=== PATIENT | female | born 1955 | race Caucasian/White ===

== ENCOUNTER 2017-10-11 08:50 | Inpatient (IN) | payer BC ==
[2017-10-11] MEDS ORDERED: Lidocaine 2.5%/Prilocain 2.5%* 5 GM TUBE ONE (08:57)
[2017-10-11] MEDS ORDERED: Buffered Lidocaine 0.9% SYRIN* 5 ML/SYR SYRINGE ONE (08:57)
[2017-10-11] MEDS ORDERED: Ondansetron INJ* 2 MG/ML VIAL ONE (12:31)
[2017-10-11] MEDS ORDERED: Dexamethasone IV* 4 MG/ML 1 ML (4 MG) ONE (12:32)
[2017-10-11] MEDS ORDERED: Heparin VIAL(*) 5000 UNITS/ML VIAL (FIVE THOUSAND) ONE (12:32)
[2017-10-11] MEDS ORDERED: Scopolamine 1.5 mg* PATCH ONE (12:32)
[2017-10-11] MEDS ORDERED: Famotidine IV* 10 MG/ML 2 ML (20 mg) ONE (12:32)
[2017-10-11] MEDS ORDERED: ceFAZolin 2 GM PREMIX (*) 2 GM/50 ML BAG IVPB ONE ×2 (12:32→17:12)
[2017-10-11] MEDS ORDERED: Methylene Blue 0.5 %* 50 MG/10 ML AMP IV ONE ×2 (12:33→12:51)
[2017-10-11] MEDS ORDERED: Gentamicin ADULT (*) 40 MG/ML VIAL ONE (12:50)
[2017-10-11] MEDS ORDERED: Bacitracin IV* 50,000 UNITS INJ ONE (12:51)
[2017-10-11] MEDS ORDERED: ceFAZolin 1 GM VIAL(*) ONE (12:51)
[2017-10-11] MEDS ORDERED: Bupivacaine 0.25% SDV* 30 ML ONE (12:51)
[2017-10-11] MEDS ORDERED: Acetaminophen TAB* 325 MG PO PRN (15:04)
[2017-10-11] MEDS ORDERED: Ondansetron INJ* 2 MG/ML VIAL IV PRN (15:04)
[2017-10-11] MEDS ORDERED: Docusate CAP* 100 MG PO PRN (15:04)
[2017-10-11] MEDS ORDERED: ALPRAZolam TAB* 0.25 MG PO PRN (15:18)
[2017-10-11] MEDS ORDERED: oxyCODONE/Acetamin 5/325 MG* TAB ONE (18:53)
[2017-10-11] MEDS ORDERED: fentaNYL* 50 MCG/ML 2 ML VIAL (100 MCG VIAL) ONE (18:53)
[2017-10-11] MEDS: ceFAZolin 1 GM VIAL(*) 1 GM in D5W 50 ML BAG* 50 ML IVPB SCH (21:27)
[2017-10-11] MEDS: HYDROmorphone INJ* 1 MG/ML CARPUJECT SYRINGE IV PRN (22:35)
[2017-10-11] MEDS: Heparin VIAL(*) 5000 UNITS/ML VIAL (FIVE THOUSAND) SUBCUT SCH (22:35)
[2017-10-12] MEDS: oxyCODONE/Acetamin 5/325 MG* TAB PO PRN ×2 (01:20→07:22)
--- NOTE | 2017-10-12 02:18 | OP ---
CC: [facility]; Dr. Lennie Morel; [facility] OPERATIVE REPORT: DATE OF OPERATION: 10/11/17 DATE OF : 51 SURGEON: Kim Reveles MD FISCAL ECONOMIST: Dr. Juarez and PAOLO Bedolla PRE-OP DIAGNOSIS: Left breast ductal carcinoma in situ. POST-OP DIAGNOSIS: Left breast ductal carcinoma in situ. OPERATIVE PROCEDURE: Left breast mastectomy and sentinel lymph node biopsy. INDICATIONS: Ms. Zimmer is a 62-year-old woman who was recently identified as having ductal carcinom a in situ after a reduction surgery. The ductal carcinoma in situ was located in the left breast and was thought to be extensive. This prompted the plan for mastectomy and sentinel lymph node attempts . DESCRIPTION OF PROCEDURE: On the morning of surgery, she underwent an attempt at sentinel lymph node localization without success so she was brought to the holding area where a blue dye was injected in to the periareolar skin. She was then brought to the operating room and placed on the OR table in a supine position and given general anesthesia. The chest was prepped and draped in the usual sterile fashion in conjunction with Dr. Juarez and then an incision was made following the scar of the red uction surgery superiorly. Subcutaneous tissue was divided with electrocautery to create flaps and e xtended from the sternum medially to the clavicle superiorly and the latissimus dorsi laterally. Onc e this was done, an inferior incision was made again following this scar of the reduction surgery and dissection was carried out with electrocautery again medially to the sternum and inferiorly to the r ectus muscle and laterally to the latissimus dorsi muscle. Breast was then elevated off the chest wal l using electrocautery. When the lateral extent of the breast was reached, search was made for senti paul node. This was done using both the navigator and inspection for the blue dye. The navigator lamonte israel appeared to identify some radioactivity in the axillary tail; however, this turned out to be a shine through from the reflected skin. Then it was noted that there were somewhat enlarged lymph no maria ines. These were taken with the breast specimen, but no other identifying features were recognized. No additional radioactivity and no blue dye was seen in any other lymphatic tissue. So, the breast w as handed off with the usual markings. Some additional tissue that came out with the axillary tail w as handed off as additional axillary contents. Hemostasis was assured with a combination of electroc autery and clips and once this appeared adequate, the case was handed over to Dr. Juarez who would be performing the reconstruction. From the mastectomy portion of the case, all sponge and instrumen t counts were correct and the patient appeared to have tolerated the procedure well. [id number]/[facility] #: [id number]
[2017-10-12 05:32] LABS: Hemoglobin 11.1 g/dl (12.0-16.0); Mean Corpuscular HGB Conc 34 g/dl (31-36); Mean Platelet Volume 8 um3 (7.4-10.4); Red Blood Count 3.66 10^6/ul (4.0-5.4)
[2017-10-12 05:34] LABS: Comments Flag Yes; Hematocrit 33 % (35-47); Mean Corpuscular Hemoglobin 30 pg (27-31); Mean Corpuscular Volume 90 fL (80-97); Red Cell Distribution Width 13 % (10.5-15); White Blood Count 8.9 10^3/ul (3.5-10.8)
[2017-10-12] MEDS: ceFAZolin 1 GM VIAL(*) 1 GM in D5W 50 ML BAG* 50 ML IVPB SCH (05:55)
[2017-10-12] MEDS: Heparin VIAL(*) 5000 UNITS/ML VIAL (FIVE THOUSAND) SUBCUT SCH (06:08)
[2017-10-12] MEDS: HYDROmorphone INJ* 1 MG/ML CARPUJECT SYRINGE IV PRN (06:09)
--- NOTE | 2017-10-12 08:45 | PN ---
Progress Note - Progress Note Date of Service: 10/12/17 Note: Surgery Ms. Zimmer is "ready to go home". She denies pain, she feels well. She has not had a diet yet. Vital Signs 10/11/17 10/11/17 10/11/17 19:49 20:55 21:00 Temperature 97.7 F 98.4 F Pulse Rate 102 93 Respiratory 18 20 20 Rate Blood Pressure 141/66 129/69 (mmHg) O2 Sat by Pulse 95 93 Oximetry 10/11/17 10/11/17 10/11/17 22:35 22:47 23:38 Temperature 99.4 F Pulse Rate 84 Respiratory 16 16 16 Rate Blood Pressure 112/58 (mmHg) O2 Sat by Pulse 94 Oximetry 10/12/17 10/12/17 10/12/17 00:00 01:20 02:50 Temperature 98 F 98.4 F Pulse Rate 87 96 Respiratory 16 16 17 Rate Blood Pressure 127/68 124/53 (mmHg) O2 Sat by Pulse 95 96 Oximetry 10/12/17 10/12/17 10/12/17 03:20 05:13 06:09 Temperature 97.7 F Pulse Rate Respiratory 16 16 16 Rate Blood Pressure 133/74 (mmHg) O2 Sat by Pulse 97 Oximetry 10/12/17 10/12/17 07:22 08:23 Temperature Pulse Rate Respiratory 18 18 Rate Blood Pressure (mmHg) O2 Sat by Pulse Oximetry Mastectomy site: the portions of the flaps that are visible are viable. The vacuum system is in place. KELLY drainage is serosanguinous, thin. Intake & Output 10/11/17 10/12/17 10/12/17 22:59 06:59 14:59 Intake Total 340 1070 Output Total 470 1745 Balance -130 -675 Intake: IV Fluids 965 LR 965 IVPB 55 cefazolin 55 Oral 340 50 Output: KELLY #1 70 45 Urine 400 1700 Laboratory Results - last 24 hr 10/12/17 05:03 WBC 8.9 RBC 3.66 L Hgb 11.1 L Hct 33 L MCV 90 MCH 30 MCHC 34 RDW 13 Plt Count 229 MPV 8 Neut % (Auto) 80.6 Lymph % (Auto) 13.3 L [place] % (Auto) 6.0 Eos % (Auto) 0 Baso % (Auto) 0.1 Absolute Neuts (auto) 7.2 Absolute Lymphs (auto) 1.2 Absolute Monos (auto) 0.5 Absolute Eos (auto) 0 Absolute Basos (auto) 0 Absolute Nucleated RBC 0 Nucleated RBC % 0 A/P: POD#1 s/p left mastectomy for DCIS. Doing well. Could go home from general surgical standpoint. Defer to Dr. Juarez. Rayna
[2017-10-12] MEDS ORDERED: Famotidine IV* 10 MG/ML 2 ML (20 mg) IV SCH (09:00)
[2017-10-12] MEDS ORDERED: Famotidine IV * 20 MG in NS 0.9% 100 ML* 100 ML IVPB SCH (09:00)
[2017-10-12 10:25] VITALS: BP 108/62
== END 2017-10-12 10:30 | disposition home or self-care (01) | DRG 362 ==
LOC: SDS 08:50 → SSU 15:04
PROVIDERS: ADMIT Surgery; ATTEND Surgery
PROC: 0HTU0ZZ Resection of Left Breast, Open Approach (ICD-10-PCS; principal; 2017-10-11 12:00)
PROC: 07B60ZX Excision of Left Axillary Lymphatic, Open Approach, Diagnostic (ICD-10-PCS; 2017-10-11 12:00)
DX: D05.12 Intraductal carcinoma in situ of left breast (principal); F41.9 Anxiety disorder, unspecified
CPT/HCPCS: 36415; 85025; 88305; 88307; A9270-GY; J0690; J1100; J1170; J1580; J1644; J2405; J3010; Q4128

== ENCOUNTER 2018-02-06 06:30 | Day surgery (SDC) | payer BC ==
[~2018-02-06 06:30] MED LIST: Buffered Lidocaine 0.9% SYRIN* 5 ML/SYR SYRINGE INTRADERM ONE; Sodium Citrate/Citric Acid* 15 ML UDC ONE; Sodium Citrate/Citric Acid* 15 ML UDC PO ONE
[2018-02-06] MEDS ORDERED: Ondansetron INJ* 2 MG/ML VIAL ONE (06:43)
[2018-02-06] MEDS ORDERED: Heparin VIAL(*) 5000 UNITS/ML VIAL (FIVE THOUSAND) ONE (06:43)
[2018-02-06] MEDS ORDERED: Dexamethasone IV* 4 MG/ML 1 ML (4 MG) ONE (06:44)
[2018-02-06] MEDS ORDERED: Scopolamine 1.5 mg* PATCH ONE (06:44)
[2018-02-06] MEDS ORDERED: ceFAZolin 2 GM PREMIX (*) 2 GM/50 ML BAG IVPB ONE (07:00)
[2018-02-06] MEDS ORDERED: ceFAZolin 1 GM VIAL(*) ONE ×2 (07:21→08:58)
[2018-02-06] MEDS ORDERED: Gentamicin ADULT (*) 40 MG/ML VIAL ONE ×2 (07:22→08:58)
[2018-02-06] MEDS ORDERED: Bacitracin IV* 50,000 UNITS INJ ONE ×2 (07:22→09:00)
[2018-02-06] MEDS ORDERED: fentaNYL* 50 MCG/ML 2 ML VIAL (100 MCG VIAL) IV PRN (07:32)
[2018-02-06] MEDS ORDERED: Naloxone* 0.4 MG/ML 1 ML VIAL IV PRN (07:32)
[2018-02-06] MEDS ORDERED: Lidocaine 2% PF * 5 ML VIAL ONE (08:08)
[2018-02-06] MEDS ORDERED: fentaNYL* 50 MCG/ML 2 ML VIAL (100 MCG VIAL) ONE (08:08)
[2018-02-06] MEDS ORDERED: Propofol* 10 MG/ML 20 ML BTL IV PUSH ONE (08:08)
[2018-02-06 10:35] VITALS: BP 109/68
== END 2018-02-06 10:36 | disposition home or self-care (01) ==
LOC: OREAST 06:30
PROVIDERS: ATTEND Plastic Surgery
DX: Z42.1 Encounter for breast reconstruction following mastectomy (principal); Z85.3 Personal history of malignant neoplasm of breast; Z68.32 Body mass index [BMI] 32.0-32.9, adult; F41.9 Anxiety disorder, unspecified
CPT/HCPCS: 88300; 88304; A9270-GY; C1789; J0690; J1100; J1580; J1644; J2405; J2704; J3010

== ENCOUNTER 2018-03-20 08:58 | Day surgery (SDC) | payer BC ==
[~2018-03-20 08:58] MED LIST changes: -Sodium Citrate/Citric Acid* 15 ML UDC ONE
[2018-03-20] MEDS ORDERED: ceFAZolin 2 GM PREMIX (*) 2 GM/50 ML BAG IVPB ONE (09:15)
[2018-03-20] MEDS ORDERED: Sodium Citrate/Citric Acid* 15 ML UDC ONE (09:16)
[2018-03-20] MEDS ORDERED: Midazolam* 1 MG/ML 2 ML VIAL (2 MG) ONE ×3 (10:11→10:51)
[2018-03-20] MEDS ORDERED: fentaNYL* 50 MCG/ML 2 ML VIAL (100 MCG VIAL) ONE (10:11)
[2018-03-20] MEDS ORDERED: Bupivacaine 0.25% SDV* 30 ML ONE (10:15)
[2018-03-20] MEDS ORDERED: Nitroglycerin 2% OINT* 1 GM PAK ONE (10:15)
[2018-03-20] MEDS ORDERED: Naloxone* 0.4 MG/ML 1 ML VIAL IV PRN (10:30)
[2018-03-20] MEDS ORDERED: Propofol* 10 MG/ML 20 ML BTL IV PUSH ONE (11:00)
[2018-03-20 11:58] VITALS: BP 104/63
== END 2018-03-20 12:17 | disposition home or self-care (01) ==
LOC: OREAST 08:58
PROVIDERS: ATTEND Plastic Surgery
DX: Z42.1 Encounter for breast reconstruction following mastectomy (principal); Z85.3 Personal history of malignant neoplasm of breast; F41.9 Anxiety disorder, unspecified
CPT/HCPCS: A9270-GY; J0690; J2250; J2704; J3010

== ENCOUNTER 2023-10-27 09:03 | Inpatient (IN) ==
[2023-10-27] MEDS ORDERED: Morphine 4 MG/ML VIAL (1 ml) IV ONE (09:54)
[2023-10-27] MEDS ORDERED: Ondansetron 4 mg VIAL 2 MG/ML 2 ml VIAL IV ONE (09:54)
[2023-10-27 10:33] LABS: ABS Lymphocytes 0.7 10^3/uL (1.0-4.8); ABS Monocytes 1.4 10^3/uL (0.0-0.9); ABS Neutrophils 13.5 10^3/uL (1.5-7.6); Eosinophil % 0.1 %; Hemoglobin 13.1 g/dL (11.5-14.3); Lymphocyte % 4.6 %; Mean Corpuscular Hemoglobin 28.6 pg (27-33); Mean Corpuscular Hgb Conc 32.8 g/dL (31-36); Mean Corpuscular Volume 87.2 fL (80-97); Mean Platelet Volume 7.1 fL (7.5-11.2); Platelet Count 690 10^3/uL (150-450); Red Blood Count 4.59 10^6/uL (3.63-4.92); Red Cell Distribution Width 12.5 % (12-17); White Blood Count 15.7 10^3/uL (3.8-11.8)
[2023-10-27 10:49] LABS: Albumin/Globulin Ratio 1.1 (1-3); Calcium 9.3 mg/dL (8.6-10.3); Creatinine, Serum 0.99 mg/dL (0.51-0.95); Globulin 2.7 g/dL (2-4); Magnesium 2.3 mg/dL (1.9-2.7); Total Bilirubin 0.3 mg/dL (0.2-1.0); Total Protein 5.7 g/dL (6.4-8.9); eGFR CKD-EPI 61.3 (>60)
[2023-10-27] MEDS ORDERED: Iohexol 350 (CONTRAST) 500 ML MDV IV ONE (10:51)
[2023-10-27 10:57] LABS: Activated Partial Thrombo Time 24.9 seconds (26.0-38.0); INR 1.1 (0.83-1.13)
[2023-10-27] MEDS ORDERED: NS 0.9% 1000 ml BAG 1,000 ML IV ONE (11:30)
[2023-10-27 12:19] LABS: Potassium 5.8 mmol/L (3.5-5.0)
[2023-10-27] MEDS ORDERED: Enoxaparin 100 MG/ML SYR SUBCUT ONE (12:56)
[2023-10-27 13:30] LABS: C Reactive Protein 180.09 mg/L (<8.01)
[2023-10-27] MEDS ORDERED: NS 0.9% 1000 ml BAG 1,000 ML IV SCH ×2 (13:30→16:30)
[2023-10-27 14:16] LABS: Body Fluid Total Nucleated 1049 /mcL
[2023-10-27] MEDS ORDERED: Senna TAB 8.6 mg TAB PO PRN (14:29)
[2023-10-27] MEDS: Morphine 2 MG/ML SYRINGE IV PRN ×3 (14:30→19:30)
[2023-10-27] MEDS ORDERED: Remdesivir 100 mg Vial 200 MG in NS 0.9% 250 ml 210 ML IV ONE (15:00)
[2023-10-27] MEDS: Heparin 5000 UNITS/ML 1 mL VIAL IV SCH (15:05)
[2023-10-27] MEDS: Heparin DRIP 25,000 UNITS BAG 25,000 UNITS/250 ML BAG IV SCH (15:08)
[2023-10-27 15:18] LABS: Body Fluid Appearance Clear; Body Fluid Color Yellow
[2023-10-27 15:23] LABS: Body Fluid Mono 40 %; Body Fluid Total Cells Counted 200
[2023-10-27 15:24] LABS: Body Fluid Source Peritonial Fluid
[2023-10-27] MEDS: Ondansetron 4 mg VIAL 2 MG/ML 2 ml VIAL IV PRN (19:34)
[2023-10-27 21:44] LABS: ABS Basophils 0.1 10^3/uL (0.0-0.1); ABS Lymphocytes 0.8 10^3/uL (1.0-4.8); ABS Monocytes 1.2 10^3/uL (0.0-0.9); ABS Neutrophils 11.2 10^3/uL (1.5-7.6); Eosinophil % 0.3 %; Hematocrit 37.9 % (35-45); Hemoglobin 12.4 g/dL (11.5-14.3); Mean Corpuscular Hemoglobin 28.5 pg (27-33); Mean Corpuscular Hgb Conc 32.7 g/dL (31-36); Mean Corpuscular Volume 87.1 fL (80-97); Mean Platelet Volume 6.9 fL (7.5-11.2); Platelet Count 680 10^3/uL (150-450); Red Blood Count 4.36 10^6/uL (3.63-4.92); Red Cell Distribution Width 12.5 % (12-17); White Blood Count 13.3 10^3/uL (3.8-11.8)
[2023-10-27 22:01] LABS: Calcium 8.6 mg/dL (8.6-10.3); Creatinine, Serum 0.92 mg/dL (0.51-0.95); Potassium 5.6 mmol/L (3.5-5.0)
[2023-10-27 22:21] LABS: Osmolality Serum 292 mOsm/kg (275-295)
[2023-10-28] MEDS: Morphine 2 MG/ML SYRINGE IV PRN ×4 (00:08→20:42)
[2023-10-28] MEDS: Ondansetron 4 mg VIAL 2 MG/ML 2 ml VIAL IV PRN ×4 (00:14→20:42)
[2023-10-28] MEDS: Heparin 5000 UNITS/ML 1 mL VIAL IV SCH (03:28)
[2023-10-28 03:32] LABS: ABS Monocytes 1.2 10^3/uL (0.0-0.9); ABS Neutrophils 10.7 10^3/uL (1.5-7.6); Eosinophil % 0.1 %; Hematocrit 40.2 % (35-45); Hemoglobin 13.2 g/dL (11.5-14.3); Lymphocyte % 7.7 %; Mean Corpuscular Hemoglobin 28.6 pg (27-33); Mean Corpuscular Hgb Conc 32.7 g/dL (31-36); Mean Corpuscular Volume 87.6 fL (80-97); Mean Platelet Volume 7.4 fL (7.5-11.2); Platelet Count 690 10^3/uL (150-450); Red Blood Count 4.59 10^6/uL (3.63-4.92); Red Cell Distribution Width 12.7 % (12-17); White Blood Count 12.9 10^3/uL (3.8-11.8)
[2023-10-28 04:34] LABS: Calcium 8.9 mg/dL (8.6-10.3); Creatinine, Serum 0.99 mg/dL (0.51-0.95); Magnesium 2.3 mg/dL (1.9-2.7); Potassium 6.4 mmol/L (3.5-5.0); eGFR CKD-EPI 61.3 (>60)
[2023-10-28] MEDS: SODIUM ZIRCONIUM CYCLOSILICATE 10 GM PACKET PO SCH ×4 (05:03→20:42)
[2023-10-28 10:25] LABS: Calcium 8.9 mg/dL (8.6-10.3); Creatinine, Serum 1.05 mg/dL (0.51-0.95); Potassium 5.7 mmol/L (3.5-5.0); eGFR CKD-EPI 57.2 (>60)
[2023-10-28] MEDS: Calcium Carb (TUMS) 500 mg CHEW TAB PO PRN ×4 (12:32→23:21)
[2023-10-28] MEDS: Heparin DRIP 25,000 UNITS BAG 25,000 UNITS/250 ML BAG IV SCH (14:56)
[2023-10-28 18:33] LABS: Calcium 9.5 mg/dL (8.6-10.3); Creatinine, Serum 1.1 mg/dL (0.51-0.95); Potassium 5.5 mmol/L (3.5-5.0); eGFR CKD-EPI 54.1 (>60)
[2023-10-28] MEDS: Magnesium Hydroxide LIQ 30 ML UDC PO PRN (20:42)
[2023-10-28] MEDS: Remdesivir 100 mg Vial 100 MG in NS 0.9% 250 ml 230 ML IV SCH (20:42)
[2023-10-29] MEDS: Ondansetron 4 mg VIAL 2 MG/ML 2 ml VIAL IV PRN ×4 (05:58→21:16)
[2023-10-29] MEDS: Morphine 2 MG/ML SYRINGE IV PRN ×3 (05:59→16:33)
[2023-10-29 06:59] LABS: Anion Gap 13 mmol/L (2-16); Blood Urea Nitrogen 60 mg/dL (6-24); CO2 Carbon Dioxide 21 mmol/L (22-32); Calcium 9.2 mg/dL (8.6-10.3); Chloride 96 mmol/L (101-111); Creatinine, Serum 1.09 mg/dL (0.51-0.95); Glucose 143 mg/dL (70-100); Magnesium 2.6 mg/dL (1.9-2.7); Sodium 130 mmol/L (135-145); eGFR CKD-EPI 54.7 (>60)
[2023-10-29] MEDS: Heparin DRIP 25,000 UNITS BAG 25,000 UNITS/250 ML BAG IV SCH (07:04)
[2023-10-29 07:28] LABS: ABS Lymphocytes 0.9 10^3/uL (1.0-4.8); ABS Monocytes 1.1 10^3/uL (0.0-0.9); ABS Nucleated RBC 0.01 10^3/ul; Hematocrit 41.9 % (35-45); Hemoglobin 13.4 g/dL (11.5-14.3); Lymphocyte % 5.9 %; Mean Corpuscular Hemoglobin 28.4 pg (27-33); Mean Corpuscular Volume 88.8 fL (80-97); Mean Platelet Volume 7.3 fL (7.5-11.2); Nucleated Red Blood Cells % 0.1 %/100WBC (0.0-0.8); Platelet Count 566 10^3/uL (150-450); Red Blood Count 4.72 10^6/uL (3.63-4.92); Red Cell Distribution Width 12.9 % (12-17)
[2023-10-29] MEDS ORDERED: Sulfur Hexaflouride MICROSPHR 25 MG VIAL ONE (08:46)
[2023-10-29] MEDS: Calcium Carb (TUMS) 500 mg CHEW TAB PO PRN ×3 (09:39→21:15)
[2023-10-29] MEDS: SODIUM ZIRCONIUM CYCLOSILICATE 10 GM PACKET PO SCH ×2 (09:39→14:25)
[2023-10-29 12:38] LABS: TSH Ultra Thyroid Stim Horm 4.58 mcIU/mL (0.34-5.60)
[2023-10-29 12:41] LABS: Free T4 1.04 ng/dL (0.61-1.12)
[2023-10-29] MEDS ORDERED: Morphine 2 MG/ML SYRINGE IV PRN (19:09)
[2023-10-29] MEDS: Magnesium Hydroxide LIQ 30 ML UDC PO PRN (21:14)
[2023-10-29] MEDS: Remdesivir 100 mg Vial 100 MG in NS 0.9% 250 ml 230 ML IV SCH (21:21)
[2023-10-29] MEDS: Heparin 5000 UNITS/ML 1 mL VIAL IV SCH (22:26)
[2023-10-30 06:10] LABS: Calcium 9.3 mg/dL (8.6-10.3); Creatinine, Serum 1.3 mg/dL (0.51-0.95); Magnesium 2.8 mg/dL (1.9-2.7); Potassium 5.1 mmol/L (3.5-5.0); eGFR CKD-EPI 44.2 (>60)
[2023-10-30 06:11] LABS: ABS Basophils 0.2 10^3/uL (0.0-0.1); ABS Lymphocytes 0.8 10^3/uL (1.0-4.8); ABS Monocytes 1.1 10^3/uL (0.0-0.9); ABS Neutrophils 13.4 10^3/uL (1.5-7.6); ABS Nucleated RBC 0.01 10^3/ul; Eosinophil % 0.1 %; Hematocrit 44.8 % (35-45); Hemoglobin 14.7 g/dL (11.5-14.3); Lymphocyte % 5.3 %; Mean Corpuscular Hemoglobin 28.6 pg (27-33); Mean Corpuscular Hgb Conc 32.7 g/dL (31-36); Mean Corpuscular Volume 87.5 fL (80-97); Mean Platelet Volume 7.3 fL (7.5-11.2); Nucleated Red Blood Cells % 0.1 %/100WBC (0.0-0.8); Platelet Count 795 10^3/uL (150-450); Red Blood Count 5.12 10^6/uL (3.63-4.92); Red Cell Distribution Width 12.8 % (12-17); White Blood Count 15.6 10^3/uL (3.8-11.8)
[2023-10-30] MEDS: Heparin 5000 UNITS/ML 1 mL VIAL IV SCH (06:57)
[2023-10-30] MEDS ORDERED: Lactated Ringers 1000 ml BAG 1,000 ML IV SCH (08:00)
[2023-10-30] MEDS: Heparin DRIP 25,000 UNITS BAG 25,000 UNITS/250 ML BAG IV SCH (09:56)
[2023-10-30] MEDS: Calcium Carb (TUMS) 500 mg CHEW TAB PO PRN ×2 (10:08→15:31)
[2023-10-30 12:40] LABS: Lactate Dehydrogenase, BF 438 U/L
[2023-10-30] MEDS ORDERED: fentaNYL 100 mcg/2 ml 50 MCG/ML VIAL ONE (15:22)
[2023-10-30 16:22] VITALS: BP 94/62
[2023-10-31 08:57] LABS: Fluid Type, Protein, Total PERITONEAL; Glucose, BF 120 mg/dL; Total Protein, BF 3.6 g/dL
[2023-10-31 09:02] LABS: Albumin, BF 2.2 g/dL; Fluid Type, Albumin PERITONEAL
== END 2023-10-30 18:30 | disposition home or self-care (01) | DRG 175 ==
LOC: ED 09:03 → EDHOLD 12:29 → MED 12:29
PROVIDERS: ADMIT Hospitalist; ATTEND Internal Medicine